=== PATIENT | male | born 1940 | race Caucasian/White ===

== ENCOUNTER 2016-05-23 09:37 | Emergency (ER) | payer MEDICARE ==
[~2016-05-23] VITALS: Ht 193 cm; Wt 95.1 kg
[~2016-05-23 09:37] MED LIST: ASPI81TA82 PO; HYDR12.56 PO; IRBE150T49 PO
[2016-05-23 09:42] VITALS: BP 131/68; PULSE 66; RESP 16; TEMP 97.6; O2SAT 97
[2016-05-23] MEDS ORDERED: ASPI1TAB69 PO (10:01)
[2016-05-23] MEDS ORDERED: HYDR12.57 PO (10:01)
[2016-05-23] MEDS ORDERED: IRBE150T15 PO (10:01)
--- NOTE | 2016-05-23 10:40 | PD ---
HPI Chief Complaint: Musculoskeletal Complaint Time Seen by Provider: 10:03 Travel History International Travel<30 days: No Contact w/Intl Traveler<30days: No Traveled to known affect area: No History of Present Illness HPI This patient complains of pain in the right buttock that radiates down the back of his right leg. It goes to the level of the calf. No injury. Duration is 24 hours. Severity is moderate. No alleviating factors. PFSH Past Medical History Hx Anticoagulant Therapy: Yes (81 MG ASA) Arthritis: Yes Cardiovascular Problems: Yes (HTN) Hypertension: Yes Past Surgical History Tonsillectomy: Yes Social History Alcohol Use: Yes Tobacco Use: No Substance Use: No Allergies-Medications (Allergen,Severity, Reaction): Coded Allergies: Penicillin (Verified Allergy, Unknown, 05/23/16) Reported Meds & Prescriptions Reported Meds & Active Scripts Active Reported Aspirin 81 Mg Tabdr 81 Mg PO DAILY Hydrochlorothiazide 12.5 Mg Cap 12.5 Mg PO DAILY Irbesartan 150 Mg Tab 150 Mg PO DAILY Review of Systems General / Constitutional: No: Fever HENT: No: Headaches Cardiovascular: No: Chest Pain or Discomfort Physical Exam Narrative GASTROINTESTINAL: Abdomen soft, non-tender, nondistended. Positive bowel sounds. No hepato-splenomegaly, or palpable masses. No guarding. NEUROLOGICAL: Awake and alert. Pupils are equal round and reactive. Motor and sensory grossly within normal limits. Five out of 5 muscle strength in all muscle groups. Normal speech. Back: No midline or CVA tenderness Negative straight leg raise Data Data Last Documented VS Vital Signs Date Time Temp Pulse Resp B/P Pulse Ox O2 Delivery O2 Flow Rate FiO2 05/23/16 09:42 97.6 66 16 131/68 97 MDM Medical Decision Making Medical Screen Exam Complete: Yes Emergency Medical Condition: Yes Medical Record Reviewed: Yes Differential Diagnosis Sciatica, lumbar strain, disc herniation Narrative Course I have reviewed the patient's electronic medical record. Presentation seems most consistent with right sided sciatica. There is no objective findings and he is neurologically intact. No red flags to suggest emergent imaging is indicated Declines medication. Recommend he start with primary care follow-up Diagnosis Primary Impression: Sciatic nerve pain Qualified Code: M54.31 - Sciatic nerve pain, right Additional Instructions: The patient was advised to follow up with their physician and return if they worsen. Med/Other Pt SpecificInfo: Other Disposition: DISCHARGE HOME Condition: Stable Marcos Kincaid MD May 23, 2016 10:40
== END 2016-05-23 10:49 | disposition home or self-care (01) ==
LOC: PHEFT 09:37
DX: M54.31 Sciatica, right side (principal); I10 Essential (primary) hypertension; F10.10 Alcohol abuse, uncomplicated; Z79.4 Long term (current) use of insulin
CPT/HCPCS: 99283